=== PATIENT | male | born 1940 | race Caucasian/White ===

== ENCOUNTER → 2016-07-31 | Outpatient (CLI) | payer MEDICARE, OTHER ==
[~2016-07-31] MED LIST: LEVO25TA34 PO; LISI-542 PO; METF500T PO; METO-346 PO; MULTTAB PO; NITR4TASL SL; OMEGA FISH OIL; POTA10CA PO; PRED5PAK PO; TORS20TA2 PO; XARE15TA PO; ZOCO20TA PO; ZYLO300T4 PO
--- NOTE | 2016-07-31 17:38 | REP ---
CHEST, TWO VIEWS: Two views of the chest are performed and compared to prior study of 01/01/2008. There is slight cardiomegaly. There is mild pulmonary venous hypertension. No new abnormal parenchymal opacities are seen. There is mild calcification and tortuosity of the thoracic aorta. Mediastinal silhouette is unchanged. There are multiple sternal wires and mediastinal clips present as well as a dual lead pacemaker. There are mild degenerative changes of the spine. IMPRESSION: Mild cardiomegaly and pulmonary venous hypertension with stable findings when compared to the prior study 01/01/2008. Signed by Ralf Calderon MD 08/01/2016 05:15 P
[2016-07-31 18:32] LABS: CALCIUM LEVEL 9.9 MG/DL (8.8-10.2); CREATININE FOR GFR 1.74 MG/DL (0.70-1.30); GLOMERULAR FILTRATION RATE 40.7 (>42); MAGNESIUM LEVEL 1.8 MG/DL (1.8-2.4); PHOSPHORUS LEVEL 2.6 MG/DL (2.5-4.9); POTASSIUM SERUM 4.4 MEQ/L (3.5-5.1)
== END ==
LOC: M LAB 16:43
PROVIDERS: ATTEND Physician Assistant
DX: I50.33 Acute on chronic diastolic (congestive) heart failure (principal); I48.2 Chronic atrial fibrillation

== ENCOUNTER → 2017-02-08 | Outpatient (REF) | payer MEDICARE, OTHER ==
[~2017-02-08] MED LIST changes: -METF500T PO; +METF500T13 PO
[2017-02-08 14:41] LABS: VITAMIN B12 LEVEL 1598 PG/ML
[2017-02-08 14:42] LABS: FOLATE > 24.0 NG/ML
[2017-02-08 14:44] LABS: ALBUMIN 3.2 GM/DL (3.2-5.2); ALBUMIN/GLOBULIN RATIO 0.65 (1.00-1.93); ALKALINE PHOSPHATASE 262 U/L (45-117); ALT/SGPT 25 U/L (12-78); ANION GAP 5 MEQ/L (8-16); AST/SGOT 36 U/L (15-37); BILIRUBIN,TOTAL 0.7 MG/DL (0.2-1.0); BLOOD UREA NITROGEN 35 MG/DL (7-18); CALCIUM LEVEL 9.6 MG/DL (8.8-10.2); CARBON DIOXIDE LEVEL 33 MEQ/L (21-32); CHLORIDE LEVEL 100 MEQ/L (98-107); CREATININE FOR GFR 1.68 MG/DL (0.70-1.30); GLOMERULAR FILTRATION RATE 42.4 (>42); GLUCOSE, FASTING 120 MG/DL (83-110); POTASSIUM SERUM 4.1 MEQ/L (3.5-5.1); SODIUM LEVEL 138 MEQ/L (136-145); TOTAL PROTEIN 8.1 GM/DL (6.4-8.2)
[2017-02-08 17:05] LABS: BASO % 0.4 % (0.0-1.0); EOS # 0.2 K/mm3 (0.0-0.50); EOS % 2.2 % (0.0-3.0); LARGE UNSTAINED CELL # 0.2 K/mm3 (0.0-0.4); LARGE UNSTAINED CELL % 2.7 % (0.0-4.0); LYMPH # 1.1 K/mm3 (1.5-4.5); LYMPH % 14.7 % (24.0-44.0); MEAN CORPUSCULAR HEMOGLOBIN 31.5 pg (27.0-33.0); MEAN CORPUSCULAR HGB CONC 32.3 g/dl (32.0-36.5); MEAN CORPUSCULAR VOLUME 97.5 fl (80.0-96.0); MONO # 0.4 K/mm3 (0.0-0.8); MONO % 5.7 % (0.0-5.0); NEUTROPHILS # 5.5 K/mm3 (1.8-7.7); NEUTROPHILS % 74.3 % (36.0-66.0); PLATELET COUNT, AUTOMATED 137 k/mm3 (150-450); RED CELL DISTRIBUTION WIDTH 16.3 % (11.5-14.5); WHITE BLOOD COUNT 7.4 K/mm3 (4.0-10.0)
[2017-02-08 19:06] LABS: ERYTHROCYTE SEDIMENTATION RATE 106 mm/hr (0-20)
[2017-02-11 14:54] LABS: ALBUMIN 3.51 GM/DL (3.29-5.55); ALBUMIN % 43.3 % (55.8-66.1); GAMMA GLOBULIN % 22.3 % (11.1-18.8)
[2017-02-12 14:14] LABS: Lyme Disease IgG/IgM Antibodie <0.91 ISR (0.00-0.90); Lyme Disease IgM Ab Quantitati <0.80 index (0.00-0.79); SJOGREN'S ANTI SS-A <0.2 AI (0.0-0.9); SJOGREN'S ANTI SS-B <0.2 AI (0.0-0.9); VITAMIN E LEVEL 12.3 mg/L (5.3-17.5)
== END ==
LOC: M LABNEURO 12:51
PROVIDERS: ATTEND Psychiatry & Neurology Neurology
DX: G62.9 Polyneuropathy, unspecified (principal); Z79.899 Other long term (current) drug therapy